=== PATIENT | female | born 1980 | race Caucasian/White ===

== ENCOUNTER → 2017-09-30 | Outpatient (CLI) | payer BC ==
[2017-09-30 11:18] LABS: PROTEIN/CREATININE RATIO 0.12
== END ==
LOC: LABNPT 10:31
PROVIDERS: ATTEND Obstetrics & Gynecology
DX: O28.8 Other abnormal findings on antenatal screening of mother (principal)
CPT/HCPCS: 82570; 84156

== ENCOUNTER → 2017-10-07 | Outpatient (CLI) | payer BC ==
[2017-10-07 14:55] LABS: PROTEIN/CREATININE RATIO 0.16
== END ==
LOC: LABNPT 14:23
PROVIDERS: ATTEND Obstetrics & Gynecology
DX: O28.8 Other abnormal findings on antenatal screening of mother (principal)
CPT/HCPCS: 82570; 84156

== ENCOUNTER 2017-10-14 16:45 | Inpatient (IN) | payer BC ==
[~2017-10-14] VITALS: Ht 154.9 cm; Wt 80.3 kg
--- OUTSIDE RECORDS SUMMARY | 2017-10-14 16:51 | XMS REPORT | Continuity of Care Document ---
Author Author [facility] Address Unknown Phone Unavailable Allergies Active Description Code Type Severity Reaction Onset Reported/Identified Relationship to Patient Clinical Status Yes NO NAME AVAILABLE 93833 DRUG N/ A N/A Yes NO NAME AVAILABLE 17658 DRUG N/ A N/A Medications Medication Packaging Start Date Stop Date Route Dosage Sig LACTATED [facility] Intravenous 1000 CONTINUOUS DEXAMETHASONE SODIUM PHOSPHATE 4 MG/ML IJ [facility] 10/28/2016 Intravenous PRN LIDOCAINE HCL 1 % IJ [facility] 2016 PRN PROPOFOL 200 MG/20ML IV EMUL Intravenous PRN ONDANSETRON HCL 4 MG/2ML IJ [facility] 10/28/2016 Intravenous PRN GLYCOPYRROLATE 0.2 MG/ML [facility] 10/28/2016 Intravenous PRN KETOROLAC TROMETHAMINE 30 MG/ML [facility] 10/28/2016 Intravenous PRN ONDANSETRON HCL 4 MG/2ML IJ [facility] 10/28/2016 Intravenous 4 ONCE PRN ONDANSETRON 4 MG PO TBDP 2016 Oral 4 ONCE PRN KETOROLAC TROMETHAMINE 15 MG/ML IJ SOLN 10/28/2016 11/02/2016 Intravenous 15 ONCE ONDANSETRON HCL 4 MG/2ML [facility] 10/28/2016 Intravenous 4 EVERY 6 HOURS PRN METOCLOPRAMIDE HCL 5 MG/ML [facility] 10/28/2016 Intravenous 10 EVERY 6 HOURS PRN ACETAMINOPHEN 325 MG PO TABS Oral 650 EVERY 4 HOURS PRN PROCHLORPERAZINE EDISYLATE 5 MG/ML IJ [facility] 10/28/2016 Intravenous 10 EVERY 6 HOURS PRN LACTATED RINGERS IV [facility] 2016 Intravenous CONTINUOUS Problems Date Dx Coded Attending Type Code Diagnosis Diagnosed By 10/28/2016 JOHN MURRY P R93.8 Abnormal findings on diagnostic imaging of other specified body structures JOHN MURRY Procedures Code Description Performed By Performed On [id number] CBC WITHOUT DIFFERENTIAL 07/19/2016 [id number] IH HEMOGLOBIN A1C 07/19/2016 [id number] CHEMISTRY PANEL 07/19/2016 Results Test Result Range IH CBC WITHOUT DIFFERENTIAL - 03/28/16 07:07 HEMATOCRIT 40.7 % 34.9-44.5 HEMOGLOBIN 13.7 g/dL 12.0-15.5 MEAN CORPUSCULAR HEMOGLOBIN 29.9 pg 26.0-34.0 MEAN CORPUSCULAR HEMOGLOBIN CONC 33.6 g/dL 31.0-37.0 MEAN CORPUSCULAR VOLUME 89.1 fL 81.6-98.3 PLATELET COUNT 360 10E9/L 150-450 RED BLOOD CELL COUNT 4.57 10E12/L 3.90-5.03 RED CELL DISTRIBUTION WIDTH 12.8 % 11.9-15.5 [id number] 8.8 10E9/L 3.5-10.5 IH CHEMISTRY PANEL - 03/28/16 07:07 ALBUMIN 4.2 g/dL 3.4-4.8 ALKALINE PHOSPHATASE 69 U/L 29-122 ALT 12 U/L 10-46 AST 14 U/L 16-37 BILIRUBIN DIRECT 0.2 mg/dL <=0.3 BILIRUBIN,TOTAL 0.6 mg/dL 0.2-1.3 BUN BLOOD 13 mg/dL 6-20 CALCIUM 9.5 mg/dL 8.7-10.5 CHLORIDE 106 mmol/L 99-111 CHOLESTEROL 195 mg/dL <=200 CO2 27 mmol/L 20-36 CREATININE 0.69 mg/dL 0.40-1.10 EGFR > mL/min >59 FERRITIN 64 ng/mL 10-291 GGT 18 U/L 7-40 GLUCOSE 91 mg/dL 74-106 HDL CHOLESTEROL 49 mg/dL 40-90 LDH 175 u/L 128-212 LDL CHOLESTEROL 121 mg/dL NON-HDL CHOLESTEROL 146 mg/dL 0-129 PHOSPHORUS 3.5 mg/dL 2.7-4.5 POTASSIUM 4.4 mmol/L 3.6-4.9 PROTEIN TOTAL 6.7 g/dL 6.4-8.3 SODIUM 140 mmol/L 136-145 TRIGLYCERIDE 126 mg/dL 0-149 TSH 2.458 uIU/mL 0.400-4.500 [id number] Yes HEMOGLOBIN A1C - 03/28/16 07:07 HEMOGLOBIN A1C 5.2 % 4.0-6.0 HPV AMPLIFIED PROBE - 07/25/16 15:20 HPV AMPLIFIED PROBE Negative Negative PAP, LIQUID-BASED - 07/25/16 15:20 [id number] Result to be found under pathology section T4, FREE - 08/20/16 15:08 FREE T4 1.11 ng/dL 0.70-1.71 CBC WITHOUT DIFFERENTIAL - 10/24/16 07:10 HEMATOCRIT 40.4 % 34.9-44.5 HEMOGLOBIN 13.2 g/dL 12.0-15.5 MEAN CORPUSCULAR HEMOGLOBIN 29.7 pg 26.0-34.0 MEAN CORPUSCULAR HEMOGLOBIN CONC 32.7 g/dL 31.0-37.0 MEAN CORPUSCULAR VOLUME 91.0 fL 81.6-98.3 PLATELET COUNT 414 10E9/L 150-450 RED BLOOD CELL COUNT 4.44 10E12/L 3.90-5.03 RED CELL DISTRIBUTION WIDTH 12.5 % 11.9-15.5 [id number] 10.0 10E9/L 3.5-10.5 IH CBC WITHOUT DIFFERENTIAL - 12/19/16 07:05 HEMATOCRIT 40.2 % 34.9-44.5 HEMOGLOBIN 13.2 g/dL 12.0-15.5 MEAN CORPUSCULAR HEMOGLOBIN 29.7 pg 26.0-34.0 MEAN CORPUSCULAR HEMOGLOBIN CONC 32.8 g/dL 31.0-37.0 MEAN CORPUSCULAR VOLUME 90.3 fL 81.6-98.3 PLATELET COUNT 395 10E9/L 150-450 RED BLOOD CELL COUNT 4.45 10E12/L 3.90-5.03 RED CELL DISTRIBUTION WIDTH 12.4 % 11.9-15.5 [id number] 7.2 10E9/L 3.5-10.5 IH HEMOGLOBIN A1C - 12/19/16 07:05 HEMOGLOBIN A1C 5.1 % <5.7 IH CHEMISTRY PANEL - 12/19/16 07:05 ALBUMIN 4.2 g/dL 3.4-4.8 ALKALINE PHOSPHATASE 62 U/L 29-122 ALT 13 U/L 10-46 AST 15 U/L 16-37 BILIRUBIN DIRECT 0.10 mg/dL <=0.30 BILIRUBIN,TOTAL 0.5 mg/dL 0.2-1.3 BUN BLOOD 12 mg/dL 6-20 CALCIUM 9.3 mg/dL 8.7-10.5 CHLORIDE 108 mmol/L 99-111 CHOLESTEROL 189 mg/dL <=200 CO2 28 mmol/L 20-36 CREATININE 0.68 mg/dL 0.40-1.10 EGFR > mL/min >59 FERRITIN 66 ng/mL 10-291 GGT 14 U/L 7-40 GLUCOSE 99 mg/dL 74-106 HDL CHOLESTEROL 51 mg/dL 40-90 LDH 166 u/L 128-212 LDL CHOLESTEROL 122 mg/dL NON-HDL CHOLESTEROL 138 mg/dL 0-129 PHOSPHORUS 3.1 mg/dL 2.7-4.5 POTASSIUM 4.1 mmol/L 3.6-4.9 PROTEIN TOTAL 6.5 g/dL 6.4-8.3 SODIUM 140 mmol/L 136-145 TRIGLYCERIDE 81 mg/dL 0-149 TSH 2.458 uIU/mL 0.400-4.934 [id number] Yes HCG, SERUM, QUALITATIVE - 02/17/17 10:57 HCG SERUM(QUAL) Positive mIU/mL Negative URINALYSIS, REFLEX CULTURE IF NEEDED - 02/28/17 07:55 APPEARANCE Hazy [none] BACTERIA 3+ [none] BILIRUBIN UA Negative Negative COLOR Yellow [none] GLUCOSE UA Negative Negative HEMOGLOBIN UA Negative Negative LEUKOCYTE ESTERASE UA 2+ Negative MUCOUS Occasional FEW NITRATE UA Negative Negative PH UA 6.0 5.0-8.0 PROTEIN UA Trace Negative RBC UA 4-10 /HPF 0-3 SPECIFIC GRAVITY UA 1.015 1.003-1.030 SQUAMOUS EPITHELIAL 4+ 1+ UROBILINOGEN UA 0.2 mg/dL 0.2 WBC UA 21-50 /HPF 0-3 [id number] Negative Negative CHLAMYDIA TRACHOMATIS AMPLIFIED PROBE - 04/07/17 14:00 [id number] Negative Negative NEISSERIA GONORRHOEAE AMPLIFIED PROBE - 04/07/17 14:00 [id number] Negative Negative CBC WITH AUTO DIFFERENTIAL - 04/07/17 15:04 BASOPHILS RELATIVE PERCENT 0.3 % 0.0-2.5 EOSINOPHILS RELATIVE PERCENT 3.2 % <=5.0 HEMATOCRIT 37.5 % 34.9-44.5 HEMOGLOBIN 12.6 g/dL 12.0-15.5 LYMPHOCYTES RELATIVE PERCENT 16.2 % 22.0-49.0 MEAN CORPUSCULAR HEMOGLOBIN 30.1 pg 26.0-34.0 MEAN CORPUSCULAR HEMOGLOBIN CONC 33.6 g/dL 31.0-37.0 MEAN CORPUSCULAR VOLUME 89.5 fL 81.6-98.3 MONOCYTES RELATIVE PERCENT 5.9 % 2.0-9.0 NEUTROPHILS RELATIVE PERCENT 74.4 % 40.0-75.0 NUCLEATED RED BLOOD CELLS 0 /100 <=0 PLATELET COUNT 394 10E9/L 150-450 RED BLOOD CELL COUNT 4.19 10E12/L 3.90-5.03 RED CELL DISTRIBUTION WIDTH 12.3 % 11.9-15.5 [id number] 11.1 10E9/L 3.5-10.5 [id number] 1.80 10E9/L 0.90-2.90 3225424 0.65 10E9/L 0.30-0.90 [id number] 0.35 10E9/L 0.05-0.50 3383359 8.25 10E9/L 1.70-7.00 [id number] 0.03 10E9/L 0.00-0.30 7121189 0 % HIV-1 AND HIV-2 ANTIBODIES - 04/07/17 15:04 [id number] Non-Reactive Non-Reactive TYPE AND SCREEN - 04/07/17 15:04 ABORH O POS ANTIBODY SCREEN NEG RPR - 04/07/17 15:04 RPR Non-Reactive Non-Reactive URINE CULTURE - 04/07/17 15:04 [id number] <10,000 CFU/mL PREPARENT STANDARD - 04/07/17 15:04 [id number] See scanned Progenity report GEST. GLUCOSE SCREEN - 05/13/17 12:25 GEST. GLUCOSE SCREEN 149 mg/dL <=139 GTT (2HR) - 05/15/17 10:32 GLUCOSE TOLERANCE TEST 2 HOUR 124 mg/dL >40-<500 CBC WITHOUT DIFFERENTIAL - 07/25/17 08:27 HEMATOCRIT 35.1 % 34.9-44.5 HEMOGLOBIN 11.5 g/dL 12.0-15.5 MEAN CORPUSCULAR HEMOGLOBIN 30.5 pg 26.0-34.0 MEAN CORPUSCULAR HEMOGLOBIN CONC 32.8 g/dL 31.0-37.0 MEAN CORPUSCULAR VOLUME 93.1 fL 81.6-98.3 PLATELET COUNT 363 10E9/L 150-450 RED BLOOD CELL COUNT 3.77 10E12/L 3.90-5.03 RED CELL DISTRIBUTION WIDTH 13.4 % 11.9-15.5 [id number] 10.8 10E9/L 3.5-10.5 GTT (2HR) - 07/25/17 10:35 GLUCOSE TOLERANCE TEST 2 HOUR 126 mg/dL >40-<500 TSH - 07/25/17 11:38 TSH 0.945 uIU/mL 0.400-4.000 Encounters ACCT No. Visit Date/Time Discharge Status Pt. Type Provider Facility Loc./Unit Complaint [id number] 08/20/2017 09:35:05 08/20/2017 23:59:59 CLS Outpatient KRYSTYNA JUSTICE [facility] CODE [id number] 02/28/2017 07:49:58 02/28/2017 23:59:59 CLS Outpatient [facility] [id number] 02/17/2017 10:48:16 02/17/2017 23:59:59 CLS Outpatient [facility] 901 [id number] 10/28/2016 07:29:33 10/28/2016 12:24:00 [facility] PER [id number] 10/24/2016 12:39:48 10/24/2016 23:59:00 [facility] PAT [id number] 08/20/2016 15:06:29 08/20/2016 23:59:59 CLS Outpatient [facility] CODE [id number] 08/20/2016 14:43:18 08/20/2016 23:59:59 CLS Outpatient STELLA EVANS [facility] CODE [id number] 07/30/2016 08:07:28 07/30/2016 23:59:59 CLS Outpatient SONG CRUZ [facility] 823 [id number] 03/28/2016 06:57:11 03/28/2016 23:59:59 CLS Outpatient [facility] [id number] 01/30/2016 07:00:40 01/30/2016 23:59:59 CLS Outpatient [facility] HCOTXR [id number] 12/12/2015 14:40:15 12/12/2015 23:59:59 CLS Outpatient CURT SOMMER [facility] 823 [id number] 07/25/2017 12:06:25 Document Registration [id number] 05/15/2017 14:55:49 Document Registration [id number] 05/13/2017 15:21:04 Document Registration [id number] 04/07/2017 17:59:01 Document Registration [id number] 12/19/2016 07:46:25 Document Registration [id number] 10/28/2016 07:52:07 Document Registration [id number] 07/26/2016 12:20:18 Document Registration [id number] 07/10/2016 08:25:42 Document Registration [id number] 10/30/2015 23:14:10 Document Registration [id number] 09/11/2017 09:59:56 09/11/2017 23:59:59 [facility] [place] [facility] [id number] 08/20/2017 14:03:30 08/20/2017 23:59:59 CLS Outpatient BAN HOBSON [place] [facility] [id number] 08/08/2017 15:39:25 08/08/2017 23:59:59 [facility] [place] [facility] [id number] 07/30/2017 12:51:53 07/30/2017 23:59:59 CLS Outpatient HEMANTHMAYRAADIN [place] [facility] [id number] 07/25/2017 08:20:25 07/25/2017 23:59:59 CLS Outpatient [place] [facility] [id number] 07/25/2017 08:17:48 07/25/2017 23:59:59 [facility] [place] [facility] [id number] 07/02/2017 14:43:59 07/02/2017 23:59:59 [facility] [place] [facility] [id number] 06/03/2017 12:53:54 06/03/2017 23:59:59 [facility] [place] [facility] [id number] 06/03/2017 12:53:04 06/03/2017 23:59:59 CLS Outpatient [place] [facility] [id number] 05/15/2017 08:03:29 05/15/2017 23:59:59 CLS Outpatient [place] [facility] [id number] 05/13/2017 11:20:08 05/13/2017 23:59:59 CLS Outpatient [place] [facility] [id number] 05/13/2017 11:05:38 05/13/2017 23:59:59 CLS Outpatient [facility] [id number] 04/07/2017 14:50:10 04/07/2017 23:59:59 [facility] Outpatient [place] [facility] [id number] 04/07/2017 13:55:13 04/07/2017 23:59:59 CLS Outpatient [facility] [id number] 11/19/2016 15:50:26 11/19/2016 23:59:59 [facility] Outpatient [facility] [id number] 09/19/2016 10:08:54 09/19/2016 23:59:59 CLS Outpatient [place] [facility] [id number] 07/25/2016 16:29:48 07/25/2016 23:59:59 CLS Outpatient [place] [facility] [id number] 07/25/2016 15:04:05 07/25/2016 23:59:59 [facility] Outpatient [facility]
[2017-10-14 17:08] VITALS: BP 139/88
[2017-10-14 17:09] VITALS: BP 143/83
[2017-10-14] MEDS ORDERED: LEVO75TA6 PO (17:19)
[2017-10-14] MEDS ORDERED: PREN1TAB86 PO (17:19)
[2017-10-14] MEDS ORDERED: CALC10009 PO (17:20)
[2017-10-14] MEDS: D5 LR IV SOLUTION 1,000 ML IV SCH (17:54)
[2017-10-14 18:30] VITALS: BP 132/80
[2017-10-14 18:51] LABS: BASOPHILS % (AUTO) 0 % (0-10); EOSINOPHILS # (AUTO) 0.1 10^3/uL (0.0-0.3); EOSINOPHILS % (AUTO) 1 % (0-10); HEMATOCRIT 37 % (35-52); HEMOGLOBIN 12.8 G/DL (11.5-16.0); LYMPHOCYTES # (AUTO) 1.8 X 10^3 (1.0-4.0); LYMPHOCYTES % (AUTO) 15 % (12-44); MEAN CORPUSCULAR HEMOGLOBIN 30 PG (25-34); MEAN CORPUSCULAR HGB CONC 34 G/DL (32-36); MEAN CORPUSCULAR VOLUME 88 FL (80-99); MEAN PLATELET VOLUME 9.8 FL (7.4-10.4); MONOCYTES # (AUTO) 0.8 X 10^3 (0.0-1.0); MONOCYTES % (AUTO) 7 % (0-12); NEUTROPHILS # (AUTO) 9.2 X 10^3 (1.8-7.8); NEUTROPHILS % (AUTO) 77 % (42-75); PLATELET COUNT 377 10^3/uL (130-400); RED BLOOD COUNT 4.26 10^6/uL (4.35-5.85); RED CELL DISTRIBUTION WIDTH 13.5 % (10.0-14.5); WHITE BLOOD COUNT 11.9 10^3/uL (4.3-11.0)
[2017-10-14 18:55] VITALS: BP 141/88
[2017-10-14 19:33] VITALS: BP 123/69
[2017-10-14] MEDS ORDERED: CATHETER FLUSH 10 ML SYR IV PRN (23:45)
[2017-10-15] VITALS (46 sets, daily range): BP systolic 108–166; BP diastolic 56–99
[2017-10-15] MEDS ORDERED: OXYTOCIN/NORMAL SALINE 500 ML IV SCH ×3 (06:34→15:11)
[2017-10-15] MEDS ORDERED: OXYTOCIN/NORMAL SALINE 500 ML IV ONE (06:35)
[2017-10-15] MEDS: D5 LR IV SOLUTION 1,000 ML IV SCH ×3 (06:55→13:33)
[2017-10-15] MEDS ORDERED: SUFENTA 0.6MCG/ML BUPIVA 0.125 100 ML ONE ×2 (15:04→15:49)
[2017-10-15] MEDS ORDERED: LACTATED RINGERS 1,000 ML IV ONE ×2 (15:04→15:23)
--- NOTE | 2017-10-15 15:09 | History & Physical ---
History and Physical Date Seen by Provider: Oct 15, 2017 Time Seen by Provider: 15:05 this patient is a 37-year-old white female with a due date of October 24, 2017 she is now 38-5/7 weeks gestation she presented last evening with complaint of regular painful contractions. She had been 3 cm and 70 percent effaced in clinic she dilated to 3-1/2 and then 4 cm and gradual mouth and they have made progress to 6 cm. Her contractions have waxed and waned through the day. She has refused Pitocin augmentation and has refused amniotomy and has refused epidural until just now she has decided that she would like to have an epidural if the epidural was placed in the Pitocin or amniotomy was performed eventually seems agreeable to that at this point. He denies rupture membranes or bleeding. She's had no problems with this .GBS culture at 35 weeks gestation was negative. allergies are none Medications are vitamins and levothyroxine Past medical history, past surgical history, obstetric history, history, and social histories are per the antepartum record HEENT exam is normal Neck supple with no lymphadenopathy and no thyromegaly Abdomen is gravid soft nontender nondistended Extremities show clubbing cyanosis. There is no Homans sign. Pelvic exam per the nurse shows a cervix now at 6 plus centimeters. she is 70- 90 percent effaced. The presenting part has been that the +1 or +2 station since presentation. Membranes are apparently intact. There has been no leaking. There's been some very slight bloody show. Laboratory Tests Test 10/14/17 17:55 Range/Units White Blood Count 11.9 H 4.3-11.0 10^3/uL Red Blood Count 4.26 L 4.35-5.85 10^6/uL Hemoglobin 12.8 11.5-16.0 G/DL Hematocrit 37 35-52 % Mean Corpuscular Volume 88 80-99 FL Mean Corpuscular Hemoglobin 30 25-34 PG Mean Corpuscular Hemoglobin Concent 34 32-36 G/DL Red Cell Distribution Width 13.5 10.0-14.5 % Platelet Count 377 130-400 10^3/uL Mean Platelet Volume 9.8 7.4-10.4 FL Neutrophils (%) (Auto) 77 H 42-75 % Lymphocytes (%) (Auto) 15 12-44 % Monocytes (%) (Auto) 7 0-12 % Eosinophils (%) (Auto) 1 0-10 % Basophils (%) (Auto) 0 0-10 % Neutrophils # (Auto) 9.2 H 1.8-7.8 X 10^3 Lymphocytes # (Auto) 1.8 1.0-4.0 X 10^3 Monocytes # (Auto) 0.8 0.0-1.0 X 10^3 Eosinophils # (Auto) 0.1 0.0-0.3 10^3/uL Basophils # (Auto) 0.0 0.0-0.1 10^3/uL lab work is normal white blood count is very minimally elevated. Platelet count is normal as is hemoglobin. Vital Signs Date Time Temp Pulse Resp B/P (MAP) Pulse Ox O2 Delivery O2 Flow Rate FiO2 10/15/17 13:00 97.8 77 18 139/83 (101) Room Air 10/15/17 12:00 Room Air 10/15/17 10:00 78 18 121/65 (83) Room Air 10/15/17 09:20 77 18 118/66 (83) Room Air 10/15/17 08:15 75 18 132/70 (90) Room Air 10/15/17 07:45 99.1 86 18 122/74 (90) Room Air 10/15/17 06:00 98.5 76 18 108/56 (73) Room Air 10/15/17 03:00 98.9 10/15/17 00:06 96.7 66 18 122/68 (86) Room Air 10/14/17 22:00 99.3 10/14/17 19:33 98.6 82 18 123/69 (87) Room Air 10/14/17 18:55 81 18 141/88 (105) Room Air 10/14/17 18:30 77 18 132/80 (97) Room Air 10/14/17 17:09 90 143/83 (103) 10/14/17 17:08 99.5 99 20 139/88 (105) 97 Room Air I & O 10/15/17 07:00 Intake Total 1800 ml Balance 1800 ml vital signs are stable. Patient is afebrile. Assessment and plan term at 30 5/7 weeks' gestation in what now a leg prolonged latent labor versus an inadequate active labor. Patient has declined interventions to accelerate labor. She has been indecisive on pain medication/epidural. She now is requesting epidural and agreeing that after epidural was placed she would like to see more progress even that requires amniotomy and/or Pitocin augmentation. After lengthy discussion with the patient regarding labor management and she does understand that it would be appropriate to perform both with the expectation that delivery likely would occur more quickly with augmentation. term in labor at 38-5/7 week gestation Allergies and Home Medications Allergies Coded Allergies: No Known Drug Allergies (Unverified , 10/14/17) Home Medications Calcium Carbonate 400 Mg Tab.chew, 400 MG PO NEEDED, (Reported) Levothyroxine Sodium 75 Mcg Tablet, 75 MCG PO DAILY, (Reported) Vit W-Ca,Fe,FA(<1 mg) 1 Each Tablet, 1 EACH PO BIDPC, (Reported) Clinical Quality Measures DVT/VTE Risk/Contraindication: Risk Factor Score Per Nursin RFS Level Per Nursing on Admit: 1=Low/No VTE PPX RADHA CHUN MD Oct 15, 2017 3:09 pm
[2017-10-15] MEDS ORDERED: oxyCODONE/APAP 10/325MG (PERCOCET 10) TABLET PO PRN (15:15)
[2017-10-15] MEDS ORDERED: TETANUS,DIPTH,PERTUSS P/F (BOOSTRIX) 0.5 ML VIAL IM ONE (15:15)
[2017-10-15] MEDS ORDERED: ONDANSETRON 4 MG/2 ML (SDV) Z0FRAN IVP PRN (15:15)
[2017-10-15] MEDS ORDERED: BENZOCAINE/MENTHOL (DERMOPLAST) 56 ML CAN TP PRN (15:15)
[2017-10-15] MEDS ORDERED: BUPIVACAINE 0.25% 30 ML (SENSORCAINE) VIAL ONE (15:22)
[2017-10-15] MEDS ORDERED: LIDOCAINE PF 2% 5 ML (XYLOCAINE) VIAL ONE (15:22)
[2017-10-15] MEDS ORDERED: fentaNYL INJECTION 100 MCG/2 ML AMP ONE (15:22)
[2017-10-15] MEDS ORDERED: diphenhydrAMINE 50 MG/ML INJ (BENADRYL) IV PRN (15:30)
[2017-10-15] MEDS ORDERED: EPIDURAL (SUFENTA 0.6MCG/ML BUPIVA 0.125%) 100 ML BAG EPI PRN (15:30)
[2017-10-15] MEDS ORDERED: NALOXONE 0.4 MG/ML 1 ML (NARCAN) VIAL IV PRN ×2 (15:30)
[2017-10-15] MEDS ORDERED: METOCLOPRAMIDE INJ 10 MG/2 ML (REGLAN) IV PRN (15:30)
[2017-10-15] MEDS ORDERED: ONDANSETRON 4 MG/2 ML (SDV) Z0FRAN IV PRN (15:30)
[2017-10-15] MEDS ORDERED: LIDOCAINE/EPI 2% 1:200,00 (XYLOCAINE) 10 ML VIAL ONE (19:02)
--- NOTE | 2017-10-15 23:03 | OPERATIVE REPORT ---
DATE OF SERVICE: 10/15/2017 DELIVERY NOTE The patient delivered by term spontaneous vaginal delivery, a viable male with Apgars of 8 and 9 at 1 and 5 minutes respectively, weight of 7 pounds 9 ounces, time of 19:48 and a cord blood gas is pending. Delivery was accomplished over an intact perineum under epidural analgesia. The infant was delivered with mom pushing down to the chin and then delivery progress stalled. However, there was hand under the chin. When the hand was delivered, the delivery was accomplished quite easily. The infant was bulb suctioned on delivery of the head and again on completion of delivery. The infant had a spontaneous cry, was quickly pinked, moved all extremities, had excellent tone and reflexes and the heart rate was over a 100 promptly after delivery. There had been some decels just prior to delivery. Cord blood gas is pending. When the umbilical cord was pulseless, it was doubly clamped, father cut the cord and the baby was passed to mom's abdomen. The placenta delivered promptly spontaneously Su. It was somewhat heart shaped and with a three-vessel cord. It appeared normal. It was sent to pathology for permanent section secondary to advanced maternal age. The cervix, vagina, rectum and perineum were examined and found intact. Estimated blood loss was around 150 mL. The patient tolerated the delivery well and remained in the LDR for recovery. The baby remained with the mom. Job ID: [id number] DocumentID: [id number] Dictated Date: 10/15/2017 20:04:58 [employer] Blowing Machine Attendant Date: 10/15/2017 23:02:49 Dictated By: RADHA CHUN MD MTDD
[2017-10-15] MEDS: KETOROLAC 30 MG/ML VIAL IV SCH (23:15)
[2017-10-16 00:30] VITALS: BP 130/80
[2017-10-16] MEDS: KETOROLAC 30 MG/ML VIAL IV SCH (05:26)
[2017-10-16 05:27] VITALS: BP 108/65
--- NOTE | 2017-10-16 08:14 | Progress Note-Standard ---
Standard Progress Note Progress Notes/Assess & Plan Date Seen by Provider: Oct 16, 2017 Time Seen by Provider: 08:13 Progress/Assessment & Plan this patient is without complaint. She is ambulating, voiding, tolerating by mouth, has good pain control. Vital Signs Date Time Temp Pulse Resp B/P (MAP) Pulse Ox O2 Delivery O2 Flow Rate FiO2 10/16/17 05:27 98.4 84 20 108/65 (79) 97 Room Air 10/16/17 00:30 92.4 77 20 130/80 (97) 97 Room Air 10/15/17 21:45 88 20 129/71 (90) Room Air 10/15/17 21:30 87 20 117/62 (80) Room Air 10/15/17 21:15 85 20 121/62 (81) Room Air 10/15/17 21:00 98.6 88 20 128/66 (86) Room Air 10/15/17 20:45 98.4 86 20 127/64 (85) Room Air 10/15/17 20:30 99.1 85 20 124/64 (84) Room Air 10/15/17 20:15 98.5 100 20 136/73 (94) Room Air 10/15/17 20:00 98.8 97 20 138/63 (88) Room Air 10/15/17 19:48 85 20 135/64 (87) Room Air 10/15/17 19:30 83 20 145/63 (90) 98 Room Air 10/15/17 19:15 86 20 139/75 (96) 98 Room Air 10/15/17 18:55 83 20 146/99 (115) 98 Room Air 10/15/17 18:40 83 20 124/84 (97) 98 Room Air 10/15/17 18:25 78 20 125/69 (87) 98 Room Air 10/15/17 18:10 78 20 131/71 (91) 94 Room Air 10/15/17 18:04 98.2 10/15/17 17:55 83 20 133/68 (89) 96 Room Air 10/15/17 17:40 76 20 129/72 (91) 96 Room Air 10/15/17 17:25 82 20 130/66 (87) 96 Room Air 10/15/17 17:10 81 20 116/64 (81) 97 Room Air 10/15/17 16:55 83 20 110/64 (79) 98 Room Air 10/15/17 16:40 80 20 126/68 (87) 98 Room Air 10/15/17 16:25 83 18 125/64 (84) 98 Room Air 10/15/17 16:20 80 20 126/68 (87) 98 Room Air 10/15/17 16:15 83 18 125/64 (84) 98 Room Air 10/15/17 16:10 85 18 130/67 (88) 99 Room Air 10/15/17 16:05 79 20 138/74 (95) 98 Room Air 10/15/17 16:00 83 18 131/67 (88) 99 Room Air 10/15/17 15:54 96 18 140/71 (94) 99 Room Air 10/15/17 15:51 85 18 142/70 (94) 98 Room Air 10/15/17 15:50 97 18 138/80 (99) 98 Room Air 10/15/17 15:45 97 18 138/80 (99) 98 Room Air 10/15/17 15:43 98 18 140/78 (98) 98 Room Air 10/15/17 15:40 79 20 138/74 (95) 98 Room Air 10/15/17 15:37 86 18 146/79 (101) 97 Room Air 10/15/17 15:33 91 18 147/77 (100) 98 Room Air 10/15/17 15:31 86 18 147/70 (95) 98 Room Air 10/15/17 15:28 86 18 153/81 (105) 97 Room Air 10/15/17 15:25 98.5 102 20 166/74 (104) Room Air 10/15/17 15:10 87 18 141/88 (105) Room Air 10/15/17 15:00 18 Room Air 10/15/17 14:00 18 Room Air 10/15/17 13:00 97.8 77 18 139/83 (101) Room Air 10/15/17 12:00 Room Air 10/15/17 10:00 78 18 121/65 (83) Room Air 10/15/17 09:20 77 18 118/66 (83) Room Air 10/15/17 08:15 75 18 132/70 (90) Room Air vital signs are stable. Patient is afebrile. Fundus is firm below the umbilicus and nontender. Extremities show no clubbing or cyanosis. There is no Homans sign. There is some pretibial pitting edema that is normal. Assessment and plan day number 1 status post term spontaneous vaginal delivery doing well. Plan is for routine convalescence care today and consider discharge home tomorrow Final Diagnosis term spontaneous vaginal delivery at 38-5/7 weeks' gestation RADHA CHUN MD Oct 16, 2017 8:14 am
[2017-10-16] MEDS ORDERED: DOCU100C37 PO (08:15)
[2017-10-16] MEDS ORDERED: OXYC-465 PO (08:15)
[2017-10-16] MEDS ORDERED: IBUP-1780 PO (08:15)
--- NOTE | 2017-10-16 08:17 | Discharge Instructions ---
Discharge Instructions Discharge Medications New, Converted or Re-Newed RX: RX on Chart Patient Instructions Patient Instructions: as directed Return to The Hospital For: as directed Activity & Diet Discharge Diet: No Restrictions Activity as Tolerated: No Orders-Post D/C & Referrals Follow Up Appt: Call to make follow up appt. for patient in 4 weeks. Activity Per routine post vaginal delivery instructions. Diet as tolerated Patient may shower or tub bathe as desired. RADHA CHUN MD Oct 16, 2017 8:16 am
[2017-10-16] MEDS: DOCUSATE SODIUM 100 MG (COLACE) CAP PO SCH ×3 (09:00→21:00)
[2017-10-16 10:21] VITALS: BP 121/76
[2017-10-16] MEDS: IBUPROFEN 800 MG (MOTRIN) TAB PO SCH ×2 (13:09→18:31)
--- NOTE | 2017-10-16 14:34 | Anesthesia-Regional Post-Op ---
Regional Patient Condition Mental Status: Alert, Oriented x3 Circulation: Same as Pre-Op Headache: Absent Sensation: Full Recovery Motor Block: Absent Post Op Complications Complications None Follow Up Care/Instructions Patient Instructions None needed. Anesthesia/Patient Condition Patient is doing well, no complaints, stable vital signs, no apparent adverse anesthesia problems. No complications reported per nursing. KELLEN LEARY CRNA Oct 16, 2017 14:34
[2017-10-16 15:34] VITALS: BP 121/74
[2017-10-16 21:25] VITALS: BP 126/81
[2017-10-17] MEDS: IBUPROFEN 800 MG (MOTRIN) TAB PO SCH (00:40)
[2017-10-17 02:00] VITALS: BP 124/77
--- NOTE | 2017-10-17 06:57 | Progress Note-Standard ---
Standard Progress Note Progress Notes/Assess & Plan Date Seen by Provider: Oct 17, 2017 Time Seen by Provider: 06:56 Progress/Assessment & Plan this patient is without complaint. She is ambulating, voiding, tolerating by mouth, has good pain control. Vital Signs Date Time Temp Pulse Resp B/P (MAP) Pulse Ox O2 Delivery O2 Flow Rate FiO2 10/16/17 05:27 98.4 84 20 108/65 (79) 97 Room Air 10/16/17 00:30 92.4 77 20 130/80 (97) 97 Room Air 10/15/17 21:45 88 20 129/71 (90) Room Air 10/15/17 21:30 87 20 117/62 (80) Room Air 10/15/17 21:15 85 20 121/62 (81) Room Air 10/15/17 21:00 98.6 88 20 128/66 (86) Room Air 10/15/17 20:45 98.4 86 20 127/64 (85) Room Air 10/15/17 20:30 99.1 85 20 124/64 (84) Room Air 10/15/17 20:15 98.5 100 20 136/73 (94) Room Air 10/15/17 20:00 98.8 97 20 138/63 (88) Room Air 10/15/17 19:48 85 20 135/64 (87) Room Air 10/15/17 19:30 83 20 145/63 (90) 98 Room Air 10/15/17 19:15 86 20 139/75 (96) 98 Room Air 10/15/17 18:55 83 20 146/99 (115) 98 Room Air 10/15/17 18:40 83 20 124/84 (97) 98 Room Air 10/15/17 18:25 78 20 125/69 (87) 98 Room Air 10/15/17 18:10 78 20 131/71 (91) 94 Room Air 10/15/17 18:04 98.2 10/15/17 17:55 83 20 133/68 (89) 96 Room Air 10/15/17 17:40 76 20 129/72 (91) 96 Room Air 10/15/17 17:25 82 20 130/66 (87) 96 Room Air 10/15/17 17:10 81 20 116/64 (81) 97 Room Air 10/15/17 16:55 83 20 110/64 (79) 98 Room Air 10/15/17 16:40 80 20 126/68 (87) 98 Room Air 10/15/17 16:25 83 18 125/64 (84) 98 Room Air 10/15/17 16:20 80 20 126/68 (87) 98 Room Air 10/15/17 16:15 83 18 125/64 (84) 98 Room Air 10/15/17 16:10 85 18 130/67 (88) 99 Room Air 10/15/17 16:05 79 20 138/74 (95) 98 Room Air 10/15/17 16:00 83 18 131/67 (88) 99 Room Air 10/15/17 15:54 96 18 140/71 (94) 99 Room Air 10/15/17 15:51 85 18 142/70 (94) 98 Room Air 10/15/17 15:50 97 18 138/80 (99) 98 Room Air 10/15/17 15:45 97 18 138/80 (99) 98 Room Air 10/15/17 15:43 98 18 140/78 (98) 98 Room Air 10/15/17 15:40 79 20 138/74 (95) 98 Room Air 10/15/17 15:37 86 18 146/79 (101) 97 Room Air 10/15/17 15:33 91 18 147/77 (100) 98 Room Air 10/15/17 15:31 86 18 147/70 (95) 98 Room Air 10/15/17 15:28 86 18 153/81 (105) 97 Room Air 10/15/17 15:25 98.5 102 20 166/74 (104) Room Air 10/15/17 15:10 87 18 141/88 (105) Room Air 10/15/17 15:00 18 Room Air 10/15/17 14:00 18 Room Air 10/15/17 13:00 97.8 77 18 139/83 (101) Room Air 10/15/17 12:00 Room Air 10/15/17 10:00 78 18 121/65 (83) Room Air 10/15/17 09:20 77 18 118/66 (83) Room Air 10/15/17 08:15 75 18 132/70 (90) Room Air vital signs are stable. Patient is afebrile. Fundus is firm below the umbilicus and nontender. Extremities show no clubbing or cyanosis. There is no Homans sign. There is some pretibial pitting edema that is normal. Assessment and plan day number 1 status post term spontaneous vaginal delivery doing well. Plan is for routine convalescence care today and consider discharge home tomorrow September 16, 2018 Patient is without complaint. She is ambulating, voiding, tolerating by mouth, has good pain control, and is requesting discharge home. Vital Signs Date Time Temp Pulse Resp B/P (MAP) Pulse Ox O2 Delivery O2 Flow Rate FiO2 10/17/17 02:00 98.0 89 18 124/77 (93) 98 Room Air 10/16/17 21:25 98.2 84 18 126/81 (96) 98 Room Air 10/16/17 15:34 98.3 87 20 121/74 (90) 99 Room Air 10/16/17 10:21 99.0 101 20 121/76 (91) 99 Room Air vital signs are stable. Patient is afebrile. Fundus is firm below the umbilicus and nontender. Extremities show no clubbing cyanosis. There is no Homans sign. There is some pretibial pitting edema that is normal. Assessment and plan day number 2 status post term spontaneous vaginal delivery doing well. Plan is for discharge home with follow-up in clinic Final Diagnosis return spontaneous vaginal delivery RADHA CHUN MD Oct 17, 2017 6:57 am
[2017-10-17 09:49] VITALS: BP 123/80
== END 2017-10-17 13:45 | disposition home or self-care (01) | DRG 775 ==
LOC: LDRP 16:45 → OBSVTOIN 22:17 → LDRP 10-16 00:15
PROVIDERS: ADMIT Obstetrics & Gynecology; ATTEND Obstetrics & Gynecology
PROC: 10E0XZZ Delivery of Products of Conception, External Approach (ICD-10-PCS; principal; 2017-10-15)
DX: O99.284 Endocrine, nutritional and metabolic diseases complicating childbirth (principal); E03.9 Hypothyroidism, unspecified; Z3A.38 38 weeks gestation of pregnancy; Z37.0 Single live birth
CPT/HCPCS: 36415; 85025; 86850; 86900; 86901; 99212

== ENCOUNTER 2019-06-22 05:48 | Outpatient (CLI) | payer BC ==
[~2019-06-22] VITALS: Ht 154.9 cm; Wt 76.2 kg
[~2019-06-22 05:48] MED LIST: CALC10009 PO; DOCU100C37 PO; IBUP-1780 PO; LEVO75TA6 PO; OXYC-465 PO; PREN1TAB86 PO
[2019-06-22] MEDS ORDERED: PANT40TA3 PO (13:28)
[2019-06-22] MEDS ORDERED: MULT-141 PO (13:28)
[2019-06-22] MEDS ORDERED: LEVO100T7 PO (13:28)
[2019-06-22] MEDS ORDERED: CHOL100045 PO (13:28)
[2019-06-22] MEDS ORDERED: LEVO88TA54 PO (13:28)
[2019-06-25] MEDS ORDERED: SUCR1TAB36 PO (12:45)
== END 2019-06-22 13:41 | disposition home or self-care (01) ==
LOC: PREOP 05:48
PROVIDERS: ATTEND Surgery
DX: Z01.818 Encounter for other preprocedural examination (principal)

== ENCOUNTER → 2019-07-08 | Outpatient (CLI) | payer BC ==
[~2019-07-08] MED LIST changes: +CHOL100045 PO; +HOLD METFORMIN - RECEIVED CONTRAST 20 ML VIAL IV SCH; +IOHEXOL 350 MG/ML 100 ML (OMNIPAQUE 350) VIAL IV ONE; +LEVO100T7 PO; +LEVO88TA54 PO; +MULT-141 PO; +NS 100 ML (IVPB) BAG IV ONE; +PANT40TA3 PO; +SUCR1TAB36 PO
--- NOTE | 2019-07-08 10:11 | Diagnostic Imaging Report ---
PROCEDURE: CT abdomen and pelvis with and without contrast. TECHNIQUE: Precontrast acquisitions were acquired through the abdomen and pelvis. Multiple contiguous axial images were obtained through the abdomen and pelvis after the administration of intravenous contrast. Auto Exposure Controls were utilized during the CT exam to meet ALARA standards for radiation dose reduction. INDICATION: Left upper quadrant pain. COMPARISON: No prior studies are available for comparison. FINDINGS: The lung bases are clear. The liver demonstrates mild generalized low density consistent with hepatic steatosis. No discrete liver mass is identified. The gallbladder is surgically absent. No biliary ductal dilatation is seen. Pancreas and spleen are unremarkable. No adrenal mass is identified. Kidneys are unremarkable. Aorta is nonaneurysmal. No central, retroperitoneal or mesenteric lymphadenopathy is seen. The small and large bowel loops are normal caliber. There is no obstruction. No free fluid or fluid collection is identified. No inflammatory changes are seen. The uterus and bladder are unremarkable. No pelvic lymphadenopathy is seen. 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 No other abnormality is seen. IMPRESSION: Essentially unremarkable CT of the abdomen and pelvis apart from mild hepatic steatosis. No acute feature is detected. Dictated by: Dictated on workstation # [id number]
== END ==
LOC: RAD 08:22
PROVIDERS: ATTEND Nurse Practitioner Family
DX: R10.12 Left upper quadrant pain (principal); Z90.49 Acquired absence of other specified parts of digestive tract
CPT/HCPCS: 74178